=== PATIENT | female | born 1985 | race Two or more races ===

== ENCOUNTER 2022-08-01 11:03 | Emergency (ER) | payer OTHER ==
[~2022-08-01] VITALS: Ht 165.1 cm; Wt 59.0 kg
[2022-08-01] MEDS ORDERED: AMOX-CLAV 875-1 EACH PO (12:58)
[2022-08-01] MEDS ORDERED: MUPIROCIN15 GM TOP (12:58)
== END 2022-08-01 13:51 | disposition home or self-care (01) ==
LOC: ER 11:03
DX: L02.211 Cutaneous abscess of abdominal wall (principal)